=== PATIENT | male | born 1970 | race African-American/Black ===

== ENCOUNTER 2022-07-21 02:24 | Inpatient (IN) | payer SELFPAY ==
[2022-07-21] MEDS ORDERED: ALBUTEROL SO4 2.5/IPRATROPIUM 0.5 INH SOL 3 ML VIAL.NEB. NEB ONE ×2 (02:41→10:55)
[2022-07-21] MEDS ORDERED: methylPREDNISolone NA SUCC 125 MG/2 ML VIAL IVPUSH ONE (02:49)
[2022-07-21] MEDS ORDERED: MAGNESIUM SULF 50% (8.12 MEQ/2 ML-1 GM VIAL) IVPB ONE (02:49)
[2022-07-21] MEDS: ALBUTEROL SO4 2.5/IPRATROPIUM 0.5 INH SOL 3 ML VIAL.NEB. NEB PRN ×2 (02:50→03:08)
[2022-07-21] MEDS ORDERED: methylPREDNISolone NA SUCC 125 MG/2 ML VIAL ONE (02:55)
[2022-07-21] MEDS ORDERED: MAGNESIUM SULFATE IN WATER 2 GM/50 ML IVPB IVPB ONE (02:55)
[2022-07-21] MEDS ORDERED: ALBUTEROL SO4 0.083% IH SOL 2.5 MG/3 ML VIAL.NEB. NEB ONE ×2 (03:43→05:09)
[2022-07-21 04:54] LABS: BASO % 0.2 % (0-2.0); EOS % 0.7 % (0-4.5); HEMATOCRIT 42.2 % (35.4-49); HEMOGLOBIN 13.8 GM/dL (11.7-16.9); LYMPH % 11.3 % (8-40); MCH 31.2 pg (25.7-33.7); MCHC 32.7 g/dl (32.0-35.9); MEAN CELL VOLUME 95.5 fl (80-96); MEAN PLT VOLUME 7.8 fl (7.5-11.1); MONO % 1.1 % (3.8-10.2); NEUT % 86.7 % (42.8-82.8); PLATELET COUNT 206 10^3/uL (134-434); RBC 4.42 M/mm3 (4.00-5.60); RDW 15.1 % (11.9-15.9); WHITE BLOOD COUNT 9.5 K/mm3 (4.0-10.0)
[2022-07-21 04:56] LABS: ALBUMIN 3.6 g/dl (3.4-5.0); BLOOD UREA NITROGEN 21.2 mg/dL (7-18)
[2022-07-21 05:00] LABS: BILIRUBIN,TOTAL 0.6 mg/dL (0.2-1)
[2022-07-21 05:01] LABS: TOT PROT 7.9 g/dl (6.4-8.2)
[2022-07-21 06:09] LABS: CALCIUM 8.8 mg/dL (8.5-10.1)
[2022-07-21 06:10] LABS: BLOOD UREA NITROGEN 22.4 mg/dL (7-18)
[2022-07-21 06:14] LABS: VENOUS BASE EXCESS 0.5 mmol/L (-2-2); VENOUS O2 SATURATION 85.1 % (70-80); VENOUS PCO2 45.1 mmHg (38-52); VENOUS PH 7.378 (7.310-7.410)
[2022-07-21 06:18] LABS: N-TERMINAL BNP 353.3 pg/ml (5-125)
[2022-07-21] MEDS ORDERED: CEFTRIAXONE 1,000 MG in DEXTROSE 5%-WATER - 50 ML IVPB SCH (10:00)
[2022-07-21] MEDS: ENOXAPARIN NA (PORCINE) 40 MG/0.4 ML DISP.SYRIN SQ SCH (10:53)
[2022-07-21] MEDS: AZITHROMYCIN IVPB 500 MG in DEXTROSE 5%-WATER - 250 ML IVPB SCH (10:53)
[2022-07-21] MEDS: ALBUTEROL SO4 2.5/IPRATROPIUM 0.5 INH SOL 3 ML VIAL.NEB. NEB SCH ×3 (10:53→20:25)
[2022-07-21] MEDS: FAMOTIDINE 20 MG TABLET PO SCH ×2 (10:53→21:13)
[2022-07-21] MEDS: NICOTINE 14 MG/24 HOURS TOPICAL PATCH TD SCH ×2 (10:53→12:25)
[2022-07-21] MEDS ORDERED: CEFTRIAXONE 1 GM/50 ML BAG ONE (10:56)
[2022-07-21] MEDS ORDERED: ENOXAPARIN NA (PORCINE) 40 MG/0.4 ML DISP.SYRIN SQ ONE (10:56)
[2022-07-21] MEDS ORDERED: AZITHROMYCIN IVPB 500 MG/250 ML BAG IVPB ONE (10:56)
[2022-07-21] MEDS ORDERED: NICOTINE 14 MG/24 HOURS TOPICAL PATCH TD ONE (10:56)
[2022-07-21] MEDS ORDERED: FAMOTIDINE 20 MG TABLET ONE (10:56)
[2022-07-21 14:38] VITALS: BMI 35.8
[2022-07-21] MEDS: methylPREDNISolone NA SUCC 125 MG/2 ML VIAL IVPB SCH ×2 (16:08→21:12)
[2022-07-21] MEDS ORDERED: CEFTRIAXONE 1 GM in DEXTROSE 5%-WATER - 50 ML IVPB SCH (19:06)
[2022-07-22] MEDS: methylPREDNISolone NA SUCC 125 MG/2 ML VIAL IVPB SCH ×4 (02:21→21:44)
[2022-07-22] MEDS: CEFTRIAXONE 1 GM in DEXTROSE 5%-WATER - 50 ML IVPB SCH (06:07)
[2022-07-22] MEDS: INSULIN (NOVOLOG) ASPART 100 UNITS/ML 10ML VIAL SQ SCH ×3 (06:19→16:55)
[2022-07-22] MEDS: ALBUTEROL SO4 2.5/IPRATROPIUM 0.5 INH SOL 3 ML VIAL.NEB. NEB SCH ×4 (08:45→20:45)
[2022-07-22] MEDS: FAMOTIDINE 20 MG TABLET PO SCH ×2 (10:08→21:44)
[2022-07-22] MEDS: NICOTINE 14 MG/24 HOURS TOPICAL PATCH TD SCH (10:08)
[2022-07-22] MEDS: ENOXAPARIN NA (PORCINE) 40 MG/0.4 ML DISP.SYRIN SQ SCH (10:09)
[2022-07-22] MEDS ORDERED: AZITHROMYCIN IVPB 500 MG/250 ML BAG IVPB SCH (11:00)
[2022-07-22] MEDS: AZITHROMYCIN IVPB 500 MG in DEXTROSE 5%-WATER - 250 ML IVPB SCH (12:02)
[2022-07-22 18:25] LABS: BASO % 0.1 % (0-2.0); HEMATOCRIT 42.7 % (35.4-49); LYMPH % 9.8 % (8-40); MCH 31.1 pg (25.7-33.7); MCHC 32.6 g/dl (32.0-35.9); MEAN CELL VOLUME 95.4 fl (80-96); MEAN PLT VOLUME 7.2 fl (7.5-11.1); MONO % 2.5 % (3.8-10.2); NEUT % 87.6 % (42.8-82.8); PLATELET COUNT 218 10^3/uL (134-434); RBC 4.48 M/mm3 (4.00-5.60); WHITE BLOOD COUNT 16.2 K/mm3 (4.0-10.0)
[2022-07-22 19:02] LABS: CALCIUM 9.6 mg/dL (8.5-10.1)
[2022-07-22 19:03] LABS: BLOOD UREA NITROGEN 33.4 mg/dL (7-18)
[2022-07-23] MEDS: methylPREDNISolone NA SUCC 125 MG/2 ML VIAL IVPB SCH (03:42)
[2022-07-23] MEDS: CEFTRIAXONE 1 GM in DEXTROSE 5%-WATER - 50 ML IVPB SCH (06:23)
[2022-07-23] MEDS: INSULIN (NOVOLOG) ASPART 100 UNITS/ML 10ML VIAL SQ SCH (06:24)
[2022-07-23 09:49] VITALS: BP 145/82; PULSE 91; RESP 20; TEMP 97.5
[2022-07-23] MEDS: ALBUTEROL SO4 2.5/IPRATROPIUM 0.5 INH SOL 3 ML VIAL.NEB. NEB SCH (09:51)
== END 2022-07-23 09:30 | disposition left against medical advice (07) | DRG 140 ==
LOC: JER 02:24 → JERBED 08:20 → J6S 13:56
PROVIDERS: ADMIT Internal Medicine; ATTEND Internal Medicine
DX: J44.1 Chronic obstructive pulmonary disease with (acute) exacerbation (principal); J18.9 Pneumonia, unspecified organism; F17.210 Nicotine dependence, cigarettes, uncomplicated; J45.909 Unspecified asthma, uncomplicated; E66.9 Obesity, unspecified; Z68.35 Body mass index [BMI] 35.0-35.9, adult
CPT/HCPCS: 0241U-QW; 36415; 71045-TC-FY; 71275-TC; 80048; 80053; 82803; 82962; 83036; 83880; 84484; 85025; 85379; 93005; 93010; 94640; 99291; Q9967

== ENCOUNTER 2022-08-07 10:47 | Inpatient (IN) | payer SELFPAY ==
[2022-08-07 10:53] VITALS: BMI 35.7
[2022-08-07] MEDS ORDERED: ALBUTEROL SO4 2.5/IPRATROPIUM 0.5 INH SOL 3 ML VIAL.NEB. NEB ONE ×2 (11:10→12:23)
[2022-08-07] MEDS ORDERED: predniSONE 20 MG TABLET (UD) PO ONE ×2 (11:12→14:21)
[2022-08-07] MEDS ORDERED: predniSONE 20 MG TABLET (UD) ONE ×2 (12:23→14:41)
[2022-08-07] MEDS ORDERED: SODIUM CHLORIDE 1,000 ML IV STA (14:31)
[2022-08-07] MEDS ORDERED: MAGNESIUM SULFATE IN WATER 2 GM/50 ML IVPB IVPB ONE (14:42)
[2022-08-07 14:44] LABS: HEMATOCRIT 43.3 % (35.4-49); HEMOGLOBIN 14.2 GM/dL (11.7-16.9); MCH 31.3 pg (25.7-33.7); MCHC 32.9 g/dl (32.0-35.9); MEAN CELL VOLUME 95.3 fl (80-96); MEAN PLT VOLUME 7.2 fl (7.5-11.1); PLATELET COUNT 144 10^3/uL (134-434); RBC 4.54 M/mm3 (4.00-5.60); WHITE BLOOD COUNT 10.4 K/mm3 (4.0-10.0)
[2022-08-07 15:05] LABS: ANISOCYTOSIS 0; HELMET CELLS 0; HOWELL-JOLLY BODIES 0; MACROCYTOSIS 0; OVALOCYTE 0; ROULEAU 0; SICKELED CELLS 0; TARGET CELLS 0; TEAR DROP CELLS 0; TOXIC GRANULATION 0
[2022-08-07 15:08] LABS: BLOOD UREA NITROGEN 16.1 mg/dL (7-18); CALCIUM 8.8 mg/dL (8.5-10.1)
[2022-08-07 15:09] LABS: ALBUMIN 3.4 g/dl (3.4-5.0)
[2022-08-07 15:12] LABS: CREATININE 1.1 mg/dL (0.55-1.3)
[2022-08-07 15:36] LABS: MAGNESIUM 2.2 mg/dL (1.8-2.4)
[2022-08-07 15:44] LABS: N-TERMINAL BNP 510.9 pg/ml (5-125)
[2022-08-07] MEDS ORDERED: amLODIPine BESYLATE 10 MG TABLET (FP) PO ONE (15:51)
[2022-08-07] MEDS ORDERED: ACETAMINOPHEN 1000 MG/100 ML BAG IVPB ONE (16:09)
[2022-08-07] MEDS ORDERED: amLODIPine BESYLATE 10 MG TABLET (FP) ONE (16:33)
[2022-08-07] MEDS ORDERED: ACETAMINOPHEN INJECTION 100 ML IVPB ONE (16:33)
[2022-08-07] MEDS ORDERED: ACETAMINOPHEN 325 MG TABLET (FP) PO PRN (17:15)
[2022-08-07] MEDS: LACTATED RINGERS SOLUTION 1,000 ML IV SCH (17:37)
[2022-08-07] MEDS ORDERED: REMDESIVIR 200 MG in SODIUM CHLORIDE 250 ML IVPB ONE (18:00)
[2022-08-07] MEDS ORDERED: ALBUTEROL SO4 HFA INHALER IH ONE (18:24)
[2022-08-07] MEDS: ALBUTEROL SO4 HFA INHALER IH PRN (18:31)
[2022-08-07] MEDS: TRIMETHOBENZAMIDE HCL 200MG/2ML INJ IM PRN (23:20)
[2022-08-08] MEDS ORDERED: ALBUTEROL SO4 2.5/IPRATROPIUM 0.5 INH SOL 3 ML VIAL.NEB. NEB PRN (01:15)
[2022-08-08] MEDS ORDERED: methaDONE HCL 10 MG TABLET PO ONE (09:23)
[2022-08-08] MEDS ORDERED: clonazePAM 0.25 MG ODT TABLETS SL PRN (09:25)
[2022-08-08] MEDS: REMDESIVIR 100 MG in SODIUM CHLORIDE 250 ML IVPB SCH ×3 (10:14→13:55)
[2022-08-08] MEDS: ENOXAPARIN NA (PORCINE) 40 MG/0.4 ML DISP.SYRIN SQ SCH (10:14)
[2022-08-08] MEDS: DEXAMETHASONE 4 MG TABLET (FP) PO SCH (10:14)
[2022-08-08] MEDS: ALBUTEROL SO4 HFA INHALER IH PRN ×2 (18:17→23:30)
[2022-08-08] MEDS: TRIMETHOBENZAMIDE HCL 200MG/2ML INJ IM PRN ×2 (19:13→21:54)
[2022-08-08] MEDS: LACTATED RINGERS SOLUTION 1,000 ML IV SCH (23:33)
[2022-08-09] MEDS: cloNIDine HCL 0.1 MG TABLET PO PRN (04:06)
[2022-08-09] MEDS ORDERED: LORazepam 2 MG/ML SDV VIAL IVPUSH ONE (04:37)
[2022-08-09] MEDS: ENOXAPARIN NA (PORCINE) 40 MG/0.4 ML DISP.SYRIN SQ SCH (09:51)
[2022-08-09] MEDS: DEXAMETHASONE 4 MG TABLET (FP) PO SCH (09:51)
[2022-08-09 10:23] LABS: BASO % 0.2 % (0-2.0); HEMATOCRIT 43.4 % (35.4-49); HEMOGLOBIN 14.1 GM/dL (11.7-16.9); LYMPH % 12.9 % (8-40); MCH 30.8 pg (25.7-33.7); MCHC 32.5 g/dl (32.0-35.9); MEAN CELL VOLUME 94.9 fl (80-96); MEAN PLT VOLUME 7.5 fl (7.5-11.1); MONO % 8.8 % (3.8-10.2); NEUT % 78.1 % (42.8-82.8); PLATELET COUNT 157 10^3/uL (134-434); RBC 4.57 M/mm3 (4.00-5.60); RDW 14.5 % (11.9-15.9); WHITE BLOOD COUNT 8.1 K/mm3 (4.0-10.0)
[2022-08-09] MEDS: REMDESIVIR 100 MG in SODIUM CHLORIDE 250 ML IVPB SCH (11:15)
[2022-08-09 11:38] LABS: ALBUMIN 3.2 g/dl (3.4-5.0); MAGNESIUM 2.6 mg/dL (1.8-2.4)
[2022-08-09 11:42] LABS: TOT PROT 6.5 g/dl (6.4-8.2)
[2022-08-09 11:43] LABS: BILIRUBIN,TOTAL 0.4 mg/dL (0.2-1)
[2022-08-09] MEDS: TRIMETHOBENZAMIDE HCL 200MG/2ML INJ IM PRN (22:45)
[2022-08-10] MEDS: cloNIDine HCL 0.1 MG TABLET PO PRN (07:27)
[2022-08-10 09:14] LABS: BASO % 0.3 % (0-2.0); EOS % 0.1 % (0-4.5); HEMATOCRIT 43.7 % (35.4-49); HEMOGLOBIN 14.3 GM/dL (11.7-16.9); MCH 30.9 pg (25.7-33.7); MCHC 32.7 g/dl (32.0-35.9); MEAN CELL VOLUME 94.4 fl (80-96); MEAN PLT VOLUME 7.4 fl (7.5-11.1); MONO % 8.3 % (3.8-10.2); NEUT % 78.3 % (42.8-82.8); PLATELET COUNT 179 10^3/uL (134-434); RBC 4.63 M/mm3 (4.00-5.60); RDW 14.7 % (11.9-15.9); WHITE BLOOD COUNT 10.9 K/mm3 (4.0-10.0)
[2022-08-10] MEDS: DEXAMETHASONE 4 MG TABLET (FP) PO SCH (09:14)
[2022-08-10] MEDS: ENOXAPARIN NA (PORCINE) 40 MG/0.4 ML DISP.SYRIN SQ SCH (09:14)
[2022-08-10] MEDS: ALBUTEROL SO4 HFA INHALER IH PRN (09:15)
[2022-08-10 09:50] LABS: ALBUMIN 3.2 g/dl (3.4-5.0)
[2022-08-10 09:51] LABS: BLOOD UREA NITROGEN 23.7 mg/dL (7-18); CALCIUM 8.9 mg/dL (8.5-10.1); MAGNESIUM 2.4 mg/dL (1.8-2.4)
[2022-08-10 09:53] LABS: CREATININE 0.9 mg/dL (0.55-1.3)
[2022-08-10 09:54] LABS: TOT PROT 6.5 g/dl (6.4-8.2)
[2022-08-10 09:55] LABS: BILIRUBIN,TOTAL 0.7 mg/dL (0.2-1)
[2022-08-10] MEDS ORDERED: methaDONE HCL 10 MG TABLET PO ONE (10:00)
[2022-08-10] MEDS ORDERED: REMDESIVIR 200 MG in SODIUM CHLORIDE 250 ML IVPB ONE (11:04)
[2022-08-10] MEDS: REMDESIVIR 100 MG in SODIUM CHLORIDE 250 ML IVPB SCH (12:50)
[2022-08-10] MEDS: cloNIDine HCL 0.1 MG TABLET PO SCH (21:34)
[2022-08-11 09:28] LABS: BASO % 0.6 % (0-2.0); EOS % 0.3 % (0-4.5); HEMATOCRIT 48.6 % (35.4-49); HEMOGLOBIN 15.8 GM/dL (11.7-16.9); LYMPH % 23.4 % (8-40); MCHC 32.6 g/dl (32.0-35.9); MEAN PLT VOLUME 7.3 fl (7.5-11.1); MONO % 8.3 % (3.8-10.2); NEUT % 67.4 % (42.8-82.8); PLATELET COUNT 214 10^3/uL (134-434); RBC 5.12 M/mm3 (4.00-5.60); RDW 14.1 % (11.9-15.9); WHITE BLOOD COUNT 9.2 K/mm3 (4.0-10.0)
[2022-08-11] MEDS: cloNIDine HCL 0.1 MG TABLET PO SCH ×2 (09:46→22:01)
[2022-08-11] MEDS: DEXAMETHASONE 4 MG TABLET (FP) PO SCH (09:46)
[2022-08-11] MEDS: ENOXAPARIN NA (PORCINE) 40 MG/0.4 ML DISP.SYRIN SQ SCH (09:46)
[2022-08-11 09:58] LABS: CALCIUM 9.3 mg/dL (8.5-10.1)
[2022-08-11 09:59] LABS: ALBUMIN 3.6 g/dl (3.4-5.0); BLOOD UREA NITROGEN 24.5 mg/dL (7-18); MAGNESIUM 2.5 mg/dL (1.8-2.4)
[2022-08-11 10:02] LABS: CREATININE 0.9 mg/dL (0.55-1.3)
[2022-08-11 10:03] LABS: TOT PROT 7.3 g/dl (6.4-8.2)
[2022-08-11] MEDS: REMDESIVIR 100 MG in SODIUM CHLORIDE 250 ML IVPB SCH (11:08)
[2022-08-12 07:55] VITALS: RESP 20
[2022-08-12] MEDS: DEXAMETHASONE 4 MG TABLET (FP) PO SCH (09:44)
[2022-08-12] MEDS: cloNIDine HCL 0.1 MG TABLET PO SCH ×2 (09:44→22:54)
[2022-08-12] MEDS: ENOXAPARIN NA (PORCINE) 40 MG/0.4 ML DISP.SYRIN SQ SCH (09:45)
[2022-08-12] MEDS ORDERED: methaDONE HCL 10 MG TABLET PO ONE (10:00)
[2022-08-13 08:38] VITALS: BP 116/74; TEMP 98.6
[2022-08-13 08:45] VITALS: PULSE 123
== END 2022-08-13 10:46 | disposition left against medical advice (07) | DRG 137 ==
LOC: JER 10:47 → JERBED 16:30 → J8W 19:57
PROVIDERS: ADMIT Internal Medicine; ATTEND Nurse Practitioner Acute Care
PROC: XW033E5 Introduction of Remdesivir Anti-infective into Peripheral Vein, Percutaneous Approach, New Technology Group 5 (ICD-10-PCS; principal; 2022-08-07)
DX: U07.1 COVID-19 (principal); J44.1 Chronic obstructive pulmonary disease with (acute) exacerbation; E66.9 Obesity, unspecified; Z68.35 Body mass index [BMI] 35.0-35.9, adult; R00.0 Tachycardia, unspecified; J96.01 Acute respiratory failure with hypoxia; F11.20 Opioid dependence, uncomplicated; F17.210 Nicotine dependence, cigarettes, uncomplicated
CPT/HCPCS: 0241U-QW; 36415; 71046-TC-FY; 80053; 83735; 83880; 84484; 85025; 85379; 86140; 94761; 99285-25; C9399

== ENCOUNTER 2023-08-23 00:57 | Inpatient (IN) | payer OTHER ==
[2023-08-23 01:08] VITALS: BMI 34.9
[2023-08-23 01:51] LABS: EOS % 10.8 % (0-4.5); HEMATOCRIT 37.5 % (35.4-49); HEMOGLOBIN 12.6 GM/dL (11.7-16.9); LYMPH % 28.4 % (8-40); MCH 32.2 pg (25.7-33.7); MCHC 33.5 g/dl (32.0-35.9); MEAN CELL VOLUME 96.1 fl (80-96); MEAN PLT VOLUME 7.6 fl (7.5-11.1); NEUT % 52.8 % (42.8-82.8); PLATELET COUNT 233 10^3/uL (134-434); RBC 3.91 M/mm3 (4.00-5.60); RDW 14.1 % (11.9-15.9); WHITE BLOOD COUNT 7.4 K/mm3 (4.0-10.0)
[2023-08-23 02:10] LABS: POTASSIUM 5.6 mmol/L (3.5-5.1)
[2023-08-23 02:12] LABS: ALBUMIN 3.3 g/dl (3.4-5.0)
[2023-08-23 02:13] LABS: BLOOD UREA NITROGEN 14.9 mg/dL (7-18)
[2023-08-23 02:16] LABS: CREATININE 1.1 mg/dL (0.55-1.3)
[2023-08-23 02:17] LABS: BILIRUBIN,TOTAL 0.5 mg/dL (0.2-1); TOT PROT 7.7 g/dl (6.4-8.2)
[2023-08-23 02:20] LABS: N-TERMINAL BNP 253.6 pg/ml (5-125)
[2023-08-23 02:35] LABS: INR 1.08 (0.83-1.09); PROTHROMBIN TIME (PATIENT) 12.5 SEC (9.7-13.0)
[2023-08-23 02:38] LABS: ACTIVATED PTT 28.5 SECONDS (25.2-36.5)
[2023-08-23 02:46] LABS: POTASSIUM 3.2 mmol/L (3.5-5.1)
[2023-08-23 02:48] LABS: CALCIUM 9.2 mg/dL (8.5-10.1)
[2023-08-23 02:49] LABS: ALBUMIN 3.4 g/dl (3.4-5.0); BLOOD UREA NITROGEN 14.7 mg/dL (7-18)
[2023-08-23 02:53] LABS: BILIRUBIN,TOTAL 0.4 mg/dL (0.2-1); TOT PROT 7.1 g/dl (6.4-8.2)
[2023-08-23] MEDS ORDERED: ALBUTEROL SO4 2.5/IPRATROPIUM 0.5 INH SOL 3 ML VIAL.NEB. NEB ONE ×5 (03:11→22:04)
[2023-08-23] MEDS: ALBUTEROL SO4 2.5/IPRATROPIUM 0.5 INH SOL 3 ML VIAL.NEB. NEB SCH ×2 (03:25→10:06)
[2023-08-23] MEDS ORDERED: methylPREDNISolone NA SUCC 125 MG/2 ML VIAL ONE (03:27)
[2023-08-23] MEDS ORDERED: MAGNESIUM SULFATE IN WATER 2 GM/50 ML IVPB IVPB ONE (03:28)
[2023-08-23] MEDS: MAGNESIUM SULFATE IN WATER 2 GM/50 ML IVPB IVPB ONE (03:37)
[2023-08-23] MEDS: methylPREDNISolone NA SUCC 125 MG/2 ML VIAL IVPUSH ONE (03:38)
[2023-08-23 03:43] LABS: VENOUS BASE EXCESS 8.4 mmol/L (-2-2); VENOUS O2 SATURATION 96.8 % (70-80); VENOUS PCO2 52.2 mmHg (38-52); VENOUS PH 7.434 (7.310-7.410)
[2023-08-23] MEDS ORDERED: POTASSIUM CHLORIDE ORAL LIQUID 20 MEQ/15 ML ONE (05:05)
[2023-08-23] MEDS ORDERED: ENOXAPARIN NA (PORCINE) 80 MG/0.8 ML DISP.SYRIN SQ ONE (05:05)
[2023-08-23] MEDS ORDERED: FUROSEMIDE 40 MG/4 ML INJECTABLE VIAL ONE ×3 (05:05→14:03)
[2023-08-23] MEDS ORDERED: ENOXAPARIN NA (PORCINE) 40 MG/0.4 ML DISP.SYRIN SQ ONE (05:05)
[2023-08-23] MEDS ORDERED: ENOXAPARIN NA (PORCINE) 100 MG/1 ML DISP.SYRIN SQ ONE ×2 (05:16→22:04)
[2023-08-23] MEDS: FUROSEMIDE 40 MG/4 ML INJECTABLE VIAL IVPUSH ONE ×2 (05:20→06:44)
[2023-08-23] MEDS: POTASSIUM CHLORIDE ORAL LIQUID 20 MEQ/15 ML PO ONE (05:20)
[2023-08-23] MEDS: ENOXAPARIN NA (PORCINE) 120 MG/0.8 ML DISP.SYRIN SQ SCH ×2 (05:58→06:03)
[2023-08-23 08:30] LABS: INR 1.16 (0.83-1.09); PROTHROMBIN TIME (PATIENT) 13.4 SEC (9.7-13.0)
[2023-08-23] MEDS ORDERED: methylPREDNISolone NA SUCC 40 MG/1 ML VIAL ONE ×2 (09:12→18:32)
[2023-08-23] MEDS: methylPREDNISolone NA SUCC 40 MG/1 ML VIAL IVPUSH SCH (10:06)
[2023-08-23] MEDS: ENOXAPARIN NA (PORCINE) 100 MG/1 ML DISP.SYRIN SQ SCH ×2 (10:08→22:41)
[2023-08-23 12:18] LABS: MAGNESIUM 1.8 mg/dL (1.8-2.4)
[2023-08-23] MEDS: WARFARIN NA 3 MG TABLET PO SCH (14:12)
[2023-08-23] MEDS: FUROSEMIDE 40 MG/4 ML INJECTABLE VIAL IVPUSH SCH (14:13)
[2023-08-23] MEDS ORDERED: AMPICILLIN NA/SULBACTAM NA 3 GM in SODIUM CHLORIDE 100 ML IVPB SCH (18:00)
[2023-08-23 19:16] LABS: INR 1.14 (0.83-1.09); PROTHROMBIN TIME (PATIENT) 13.2 SEC (9.7-13.0)
[2023-08-23 22:24] LABS: METHADONE, UR NEGATIVE (NEGATIVE); URINE AMPHETAMINES NEGATIVE (NEGATIVE); URINE BARBITURATES NEGATIVE (NEGATIVE); URINE BENZODIAZEPINES NEGATIVE (NEGATIVE)
[2023-08-23 22:25] LABS: PHENCYCLIDINE,URINE NEGATIVE (NEGATIVE)
[2023-08-23 22:28] LABS: COCAINE, UR NEGATIVE (NEGATIVE); OPIATES, URI POSITIVE (NEGATIVE)
[2023-08-24] MEDS: BUDESONIDE/FORMETEROL FUMARATE 160/4.5 mcg INHALER IH SCH (00:05)
[2023-08-24] MEDS ORDERED: methylPREDNISolone NA SUCC 40 MG/1 ML VIAL ONE ×3 (01:31→16:49)
[2023-08-24 08:53] LABS: BASO % 0.5 % (0-2.0); HEMATOCRIT 39.1 % (35.4-49); HEMOGLOBIN 12.8 GM/dL (11.7-16.9); INR 1.16 (0.83-1.09); MCH 31.8 pg (25.7-33.7); MCHC 32.7 g/dl (32.0-35.9); MEAN CELL VOLUME 97.4 fl (80-96); MEAN PLT VOLUME 7.4 fl (7.5-11.1); NEUT % 86.5 % (42.8-82.8); PLATELET COUNT 177 10^3/uL (134-434); PROTHROMBIN TIME (PATIENT) 13.4 SEC (9.7-13.0); RBC 4.01 M/mm3 (4.00-5.60); RDW 14.4 % (11.9-15.9); WHITE BLOOD COUNT 13.3 K/mm3 (4.0-10.0)
[2023-08-24 09:07] LABS: POTASSIUM 3.6 mmol/L (3.5-5.1)
[2023-08-24 09:12] LABS: CALCIUM 8.8 mg/dL (8.5-10.1)
[2023-08-24 09:14] LABS: ALBUMIN 3.2 g/dl (3.4-5.0); BLOOD UREA NITROGEN 20.9 mg/dL (7-18); MAGNESIUM 2.3 mg/dL (1.8-2.4)
[2023-08-24 09:21] LABS: CREATININE 1.3 mg/dL (0.55-1.3)
[2023-08-24 09:26] LABS: BILIRUBIN,TOTAL 0.4 mg/dL (0.2-1); TOT PROT 7.2 g/dl (6.4-8.2)
[2023-08-24] MEDS ORDERED: NICOTINE 7 MG/24 HOURS TOPICAL PATCH TD ONE (10:06)
[2023-08-24] MEDS ORDERED: ENOXAPARIN NA (PORCINE) 100 MG/1 ML DISP.SYRIN SQ ONE (10:06)
[2023-08-24] MEDS: NICOTINE 7 MG/24 HOURS TOPICAL PATCH TD SCH (10:11)
[2023-08-24] MEDS ORDERED: ALBUTEROL SO4 2.5/IPRATROPIUM 0.5 INH SOL 3 ML VIAL.NEB. NEB ONE ×5 (11:39→16:52)
[2023-08-24 12:52] LABS: HIV INTERPRETATION NEGATIVE (NEGATIVE)
[2023-08-24] MEDS ORDERED: FUROSEMIDE 40 MG/4 ML INJECTABLE VIAL ONE (14:54)
[2023-08-24] MEDS ORDERED: AMPICILLIN NA/SULBACTAM NA 3 GM VIAL ONE (14:54)
[2023-08-24] MEDS: AMPICILLIN NA/SULBACTAM NA 3 GM in SODIUM CHLORIDE 100 ML IVPB SCH (15:11)
[2023-08-24] MEDS ORDERED: WARFARIN NA 5 MG TABLET ONE (16:52)
[2023-08-24] MEDS ORDERED: WARFARIN NA 1 MG TABLET ONE (16:52)
[2023-08-24] MEDS: methylPREDNISolone NA SUCC 40 MG/1 ML VIAL IVPUSH SCH (17:03)
[2023-08-24] MEDS: WARFARIN NA PO SCH (17:03)
[2023-08-24] MEDS ORDERED: WARFARIN NA 3 MG TABLET PO SCH (18:00)
[2023-08-25] MEDS ORDERED: AMPICILLIN NA/SULBACTAM NA 3 GM VIAL ONE ×2 (01:51→07:44)
[2023-08-25 07:22] VITALS: BP 125/93; PULSE 95; RESP 17; TEMP 98.1
[2023-08-25] MEDS ORDERED: ALBUTEROL SO4 2.5/IPRATROPIUM 0.5 INH SOL 3 ML VIAL.NEB. NEB ONE (07:44)
[2023-08-25] MEDS ORDERED: FUROSEMIDE 40 MG/4 ML INJECTABLE VIAL ONE (07:45)
[2023-08-25 08:19] LABS: HEMATOCRIT 39.7 % (35.4-49); MCHC 32.7 g/dl (32.0-35.9); MEAN CELL VOLUME 97.7 fl (80-96); MEAN PLT VOLUME 8.2 fl (7.5-11.1); PLATELET COUNT 217 10^3/uL (134-434); RBC 4.06 M/mm3 (4.00-5.60); RDW 14.3 % (11.9-15.9); WHITE BLOOD COUNT 13.2 K/mm3 (4.0-10.0)
[2023-08-25 08:32] LABS: INR 1.38 (0.83-1.09); PROTHROMBIN TIME (PATIENT) 15.9 SEC (9.7-13.0)
[2023-08-25 08:38] LABS: POTASSIUM 3.9 mmol/L (3.5-5.1)
[2023-08-25 08:51] LABS: BLOOD UREA NITROGEN 23.9 mg/dL (7-18); CALCIUM 9.2 mg/dL (8.5-10.1); MAGNESIUM 2.3 mg/dL (1.8-2.4)
[2023-08-25 08:54] LABS: PHOSPHOROUS 3.6 mg/dL (2.5-4.9)
[2023-08-25 08:55] LABS: CREATININE 1.2 mg/dL (0.55-1.3)
== END 2023-08-25 09:25 | disposition left against medical advice (07) | DRG 139 ==
LOC: JER 00:57 → JERBED 04:37
PROVIDERS: ADMIT Internal Medicine; ATTEND Internal Medicine
DX: J18.9 Pneumonia, unspecified organism (principal); J44.9 Chronic obstructive pulmonary disease, unspecified; I26.99 Other pulmonary embolism without acute cor pulmonale; F17.210 Nicotine dependence, cigarettes, uncomplicated; M35.1 Other overlap syndromes; I50.31 Acute diastolic (congestive) heart failure; F31.9 Bipolar disorder, unspecified; J98.4 Other disorders of lung; F11.10 Opioid abuse, uncomplicated
CPT/HCPCS: 0241U-QW; 36415; 71045-TC-FY; 71275-TC; 80048; 80053; 80307; 82803; 83735; 83880; 84100; 84484; 85025; 85027; 85610; 85730; 86480; 87040; 87305; 87389; 87449; 93005; 93010; 93970-TC; 99285-25

== ENCOUNTER 2024-04-14 19:38 | Emergency (ER) | payer OTHER ==
[2024-04-14 19:50] VITALS: TEMP 98.8; BMI 31.6
[2024-04-14] MEDS: NALOXONE HCL 0.4 MG/ML VIAL IVPUSH ONE ×2 (21:22→22:35)
[2024-04-14] MEDS ORDERED: NALOXONE HCL 0.4 MG/ML VIAL ONE (21:23)
[2024-04-14] MEDS: NALOXONE HCL (KLOXXADO) 8 MG SPRAY NS ONE (21:34)
[2024-04-14] MEDS: NALOXONE HCL 1 MG/ML ML IM ONE (22:47)
[2024-04-14 23:09] LABS: BASO % 0.5 % (0-2.0); EOS % 1.9 % (0-4.5); HEMATOCRIT 34.4 % (35.4-49); HEMOGLOBIN 11.4 GM/dL (11.7-16.9); LYMPH % 20.1 % (8-40); MCH 31.3 pg (25.7-33.7); MCHC 33.1 g/dl (32.0-35.9); MEAN CELL VOLUME 94.7 fl (80-96); MEAN PLT VOLUME 7.5 fl (7.5-11.1); NEUT % 73.5 % (42.8-82.8); PLATELET COUNT 214 10^3/uL (134-434); RBC 3.63 M/mm3 (4.00-5.60); RDW 14.4 % (11.9-15.9); WHITE BLOOD COUNT 8.5 K/mm3 (4.0-10.0)
[2024-04-14 23:19] LABS: INR 1.42 (0.83-1.09); PROTHROMBIN TIME (PATIENT) 15.9 SEC (9.7-13.0)
[2024-04-14 23:22] LABS: ACTIVATED PTT 31.4 SECONDS (25.2-36.5)
[2024-04-14 23:46] VITALS: PULSE 62
[2024-04-14] MEDS ORDERED: SODIUM CHLORIDE 1,000 ML IV STA (23:59)
[2024-04-15] MEDS: SODIUM CHLORIDE 0.9% 1000 ML INFUS.BAG IV STA (00:10)
[2024-04-15] MEDS: SODIUM CHLORIDE 500 ML IV STA (00:13)
[2024-04-15 00:16] LABS: POTASSIUM 3.3 mmol/L (3.5-5.1)
[2024-04-15 00:19] LABS: CALCIUM 8.3 mg/dL (8.5-10.1)
[2024-04-15 00:20] LABS: ALBUMIN 2.9 g/dl (3.4-5.0); BLOOD UREA NITROGEN 12.4 mg/dL (7-18)
[2024-04-15 00:23] LABS: CREATININE 1.2 mg/dL (0.55-1.3)
[2024-04-15 00:24] LABS: BILIRUBIN,TOTAL 0.5 mg/dL (0.2-1)
[2024-04-15 00:25] LABS: TOT PROT 6.3 g/dl (6.4-8.2)
[2024-04-15] MEDS ORDERED: KCL 10 MEQ IVPB 10 MEQ/100 ML INFUS.BAG IVPB ONE (01:18)
[2024-04-15] MEDS: KCL 10 MEQ IVPB 10 MEQ/100 ML INFUS.BAG IVPB SCH (01:31)
[2024-04-15 01:34] VITALS: BP 94/59; RESP 11
[2024-04-15] MEDS ORDERED: POTASSIUM CHLORIDE ORAL LIQUID 20 MEQ/15 ML ONE (02:34)
[2024-04-15] MEDS: POTASSIUM CHLORIDE ORAL LIQUID 20 MEQ/15 ML PO ONE (02:39)
[2024-04-15 04:12] LABS: METHADONE, UR NEGATIVE (NEGATIVE); OPIATES, URI NEGATIVE (NEGATIVE); PHENCYCLIDINE,URINE NEGATIVE (NEGATIVE); URINE BARBITURATES NEGATIVE (NEGATIVE)
[2024-04-15 04:13] LABS: URINE AMPHETAMINES NEGATIVE (NEGATIVE)
[2024-04-15 04:48] LABS: COCAINE, UR NEGATIVE (NEGATIVE); URINE BENZODIAZEPINES NEGATIVE (NEGATIVE)
== END 2024-04-15 04:39 | disposition left against medical advice (07) ==
LOC: JER 19:38
PROC: 3E033NZ Introduction of Analgesics, Hypnotics, Sedatives into Peripheral Vein, Percutaneous Approach (ICD-10-PCS; principal; 2024-04-14)
DX: R40.0 Somnolence (principal); R09.02 Hypoxemia; F11.20 Opioid dependence, uncomplicated; Z20.822 Contact with and (suspected) exposure to COVID-19
CPT/HCPCS: 0241U-QW; 36415; 80053; 80307; 84484; 85025; 85610; 85730; 93005; 93010; 99284-25